=== PATIENT | female | born 2000 | race Caucasian/White ===

== ENCOUNTER 2019-01-04 16:28 | Outpatient (CLI) | payer OTHER ==
[~2019-01-04] VITALS: Ht 154.9 cm; Wt 52.2 kg
[2019-01-04 16:42] VITALS: Ht 154.9 cm; Wt 52.2 kg
[2019-01-04 16:43] VITALS: BP 96/52; RESP 17
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
== END 2019-01-04 20:01 | disposition home or self-care (01) ==
LOC: OBT 16:28 → L-D 16:29 → OBT 20:01
PROVIDERS: ATTEND Obstetrics & Gynecology
DX: O26.893 Other specified pregnancy related conditions, third trimester (principal); R10.9 Unspecified abdominal pain; Z3A.29 29 weeks gestation of pregnancy
CPT/HCPCS: 76817; 76818; 85460; 86850; 86900; 86901; Z7500; G0463